=== PATIENT | female | born 1955 | race Caucasian/White ===

== ENCOUNTER 2024-06-06 15:15 | Outpatient (CLI) | payer OTHER | END 2024-06-06 15:16 | disposition home or self-care (01) | LOC: CSHMAMMO 15:15 | PROVIDERS: ATTEND Internal Medicine Hematology & Oncology | DX: M81.0 Age-related osteoporosis without current pathological fracture (principal); C50.812 Malignant neoplasm of overlapping sites of left female breast | CPT/HCPCS: 77080 ==